=== PATIENT | female | born 1995 | race Caucasian/White ===

== ENCOUNTER 2021-06-03 23:31 | Emergency (ER) | payer BC ==
[2021-06-04] MEDS ORDERED: LORazepam 1 MG Tab PO ONE (00:10)
[2021-06-04] MEDS ORDERED: Ketorolac 60 MG/2 ML SDV IM ONE (00:33)
--- NOTE | 2021-06-04 14:19 | EDM.PDOCBH ---
ED HPI GENERAL MEDICAL PROBLEM - General Chief Complaint: Back Pain or Injury Stated Complaint: back pain,and cough, Time Seen by Provider: 06/04/21 00:05 - History of Present Illness INITIAL COMMENTS - FREE TEXT/NARRATIVE: Pt is here with C/O diffuse pains. She has back pain for at least a year, that's getting worse. Also chest pain, neck pain, and H/A. She has had no recent falls or injuries. She has not taken any OTC meds for her pain. She feels that her ears are bleeding, but has not noticed any blood. She has Hx of anxiety and has a medication for it, but doesn't take it. Her Dad has been diagnosed with pneumonia, and since then she feels that she may have it also. The pt has not been coughing at all so far. 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 HEENT: Reports: Other (sensation of ears bleeding.) Musculoskeletal: Reports: Neck Pain, Back Pain, Other (and chest pain.) Neurological: Reports: Headache Psychiatric: Reports: Anxiety ED EXAM, BEHAVIORAL HEALTH - Physical Exam Exam: See Below Text/Narrative:: Pt is anxious during the course of the visit. Her legs and body are trembling. No respiratory distress. General Appearance: Anxious Eye Exam: Bilateral Eye: EOMI, PERRL Ears: Other (No bleeding or injury to ear canals noted.) Extremities: Other (Her legs tremble at times.) COURSE, BEHAVIORAL HEALTH COMP - Course Vital Signs: Last Vital Signs Temp 97.4 F 06/03/21 23:45 Pulse 114 H 06/03/21 23:45 Resp 18 06/03/21 23:45 BP 133/87 06/03/21 23:45 Pulse Ox 99 06/03/21 23:45 Orders, Labs, Meds: Laboratory Tests 06/04/21 06/04/21 Range/Units 00:10 00:10 WBC 14.8 H (4.0-11.0) K/uL RBC 4.52 (3.80-5.80) M/uL Hgb 14.2 (11.5-16.5) g/dL Hct 41.9 (37.0-47.0) % MCV 93 (76-96) fL MCH 31.4 (27.0-32.0) pg MCHC 33.9 (31.0-35.0) g/dL RDW 13.1 (11.0-16.0) % Plt Count 329 (150-500) K/uL MPV 10.3 H (6.0-10.0) fL Neut % (Auto) 65.9 (45.0-70.0) % Lymph % (Auto) 22.9 (20.0-40.0) % [place] % (Auto) 8.1 (3.0-10.0) % Eos % (Auto) 2.8 (1.0-5.0) % Baso % (Auto) 0.3 (0.0-0.5) % Neut # (Auto) 9.74 H (2.00-7.50) K/uL Lymph # (Auto) 3.38 (1.50-4.00) K/uL [place] # (Auto) 1.20 H (0.20-0.80) K/uL Eos # (Auto) 0.41 H (0.04-0.40) K/uL Baso # (Auto) 0.04 (0.02-0.10) K/uL Sodium 144 (136-145) mmol/L Potassium 3.7 (3.5-5.1) mmol/L Chloride 105 (98-107) mmol/L Carbon Dioxide 28.5 (21.0-32.0) mmol/L Anion Gap 14.2 (5.0-15.0) mmol/L BUN 12 (8-26) mg/dL Creatinine 0.84 (0.55-1.02) mg/dL Est Cr Clr Drug Dosing TNP Estimated GFR (MDRD) > 60 (>60) MLS/MIN BUN/Creatinine Ratio 14.3 (6-25) Glucose 116 H (74-100) mg/dL Calcium 9.5 (8.5-10.1) mg/dL Total Bilirubin 0.3 (0.0-1.0) mg/dL AST 18 (15-37) U/L ALT 43 (12-78) U/L Alkaline Phosphatase 94 (46-116) U/L Total Protein 7.8 (6.4-8.2) g/dL Albumin 3.9 (3.4-5.0) g/dL Globulin 3.9 (2.2-4.2) g/dL Albumin/Globulin Ratio 1.0 (0.8-2.0) Medications Discontinued Medications Generic Name Dose Route Start Last Admin Trade Name Freq PRN Reason Stop Dose Admin Ketorolac Tromethamine 60 mg 06/04/21 00:33 06/04/21 00:15 Ketorolac 60 Mg/2 Ml Sdv IM 06/04/21 00:34 60 mg ONETIME ONE Administration Lorazepam 1 mg 06/04/21 00:10 06/04/21 00:10 Lorazepam 1 Mg Tab PO 06/04/21 00:11 1 mg ONETIME ONE Administration Re-Assessment/Re-Exam Time: 00:50 (The Ativan has calmed her down. I discussed Anxieyt with her. She will be given a script for Ativan to take prn. she needs to follow up with her PCP LUKAS for further eval.) Departure - Departure Time of Disposition: 01:00 Disposition: Home, Self-Care 01 Condition: Good Clinical Impression: Anxiety - Discharge Information *PRESCRIPTION DRUG MONITORING PROGRAM REVIEWED*: No *COPY OF PRESCRIPTION DRUG MONITORING REPORT IN PATIENT CHAMP: No Instructions: Generalized Anxiety Disorder, Adult, Panic Attack, [id number] Referrals: PCP,None [Primary Care Provider] - Forms: ED Department Discharge Additional Instructions: Take Ativan one tab every 8 hours as needed for anxiety. Take over the counter Motrin or Tylenol for pain. Folluw up with your Provider. Sepsis Event Note (ED) - Evaluation Sepsis Screening Result: No Definite Risk
== END 2021-06-04 01:14 | disposition home or self-care (01) ==
LOC: LB.ED 23:31
DX: F41.9 Anxiety disorder, unspecified (principal); Z88.8 Allergy status to other drugs, medicaments and biological substances
CPT/HCPCS: 36415; 80053; 85025; 96372; 99283; A9270; J1885